=== PATIENT | female | born 1985 | race Caucasian/White ===

== ENCOUNTER → 2017-02-06 | Outpatient (CLI) | payer OTHER ==
[2017-02-06 09:15] LABS: ABSOLUTE BASOPHILS # (AUTO) 0.1 10^3/uL (0.0-0.2); ABSOLUTE EOSINOPHILS # (AUTO) 0.1 10^3/uL (0.0-0.6); ABSOLUTE LYMPHOCYTES (AUTO) 1.5 10^3/uL (0.5-4.7); ABSOLUTE MONOCYTES (AUTO) 0.5 10^3/uL (0.1-1.4); BASOPHILS % (AUTO) 1.1 % (0-2); EOSINOPHILS % (AUTO) 1.5 % (0-6); HEMATOCRIT 39.3 % (36.0-47.0); HEMOGLOBIN 12.6 g/dL (12.0-15.5); HGB HCT DIFFERENCE -1.5; LYMPHOCYTES % (AUTO) 24.8 % (13-45); MEAN CORPUSCULAR HEMOGLOBIN 25.8 pg (27.0-33.4); MEAN CORPUSCULAR HGB CONC 32.1 g/dL (32.0-36.0); MEAN CORPUSCULAR VOLUME 81 fl (80-97); MONOCYTES % (AUTO) 7.4 % (3-13); RED BLOOD COUNT 4.88 10^6/uL (3.72-5.28); RED CELL DISTRIBUTION WIDTH 15.7 % (11.5-14.0); SEGMENTED NEUTROPHILS % (AUTO) 65.2 % (42-78); WHITE BLOOD COUNT 6.1 10^3/uL (4.0-10.5)
[2017-02-06 09:21] LABS: ALANINE AMINOTRANSFERASE 15 U/L (9-52); ALBUMIN 4.3 g/dL (3.5-5.0); ALKALINE PHOSPHATASE 86 U/L (38-126); ANION GAP 13 (5-19); ASPARTATE AMINO TRANSFERASE 18 U/L (14-36); BILIRUBIN,DIRECT 0.3 mg/dL (0.0-0.4); BILIRUBIN,TOTAL 0.5 mg/dL (0.2-1.3); BLOOD UREA NITROGEN 16 mg/dL (7-20); CALCIUM 9.2 mg/dL (8.4-10.2); CARBON DIOXIDE 23 mmol/L (22-30); CHLORIDE 105 mmol/L (98-107); CHOLESTEROL 201.04 mg/dL (0-200); Direct HDL 46 mg/dL (>40); GLUCOSE 87 mg/dL (75-110); POTASSIUM 4.1 mmol/L (3.6-5.0); TOTAL PROTEIN 7.9 g/dL (6.3-8.2); TRIGLYCERIDES 115 mg/dL (<150)
[2017-02-06 09:32] LABS: DIRECT LDL 148 mg/dL (<100)
[2017-02-06 09:52] LABS: THYROID STIMULATING HORMONE 2.86 uIU/mL (0.47-4.68)
[2017-02-07 17:27] LABS: INSULIN 12.2 uIU/mL (2.6-24.9)
[2017-02-07 17:28] LABS: VITAMIN D 25-HYDROXY 27.9 ng/mL (30.0-100.0)
== END ==
LOC: OD 07:21
PROVIDERS: ATTEND Family Medicine
DX: Z98.84 Bariatric surgery status (principal); E88.81 Metabolic syndrome and other insulin resistance; L74.9 Eccrine sweat disorder, unspecified; R23.2 Flushing
CPT/HCPCS: 36415; 80053; 80061; 82306; 82533; 82607; 83036; 83525; 83540; 83550; 84439; 84443; 85025

== ENCOUNTER 2018-05-12 03:52 | Emergency (ER) | payer OTHER ==
[2018-05-12] MEDS ORDERED: NORMAL SALINE 1000 ML 1,000 ML IV ONE ×2 (04:10→04:38)
[2018-05-12] MEDS ORDERED: MORPHINE SULFATE 10 MG/ML INJ IV ONE ×2 (04:10→04:39)
[2018-05-12] MEDS ORDERED: ONDANSETRON HCL INJ/PF 4 MG/2 ML SDV IV ONE ×2 (04:10→04:39)
--- NOTE | 2018-05-12 04:14 | ER Document Report ---
ED General - General Chief Complaint: Abdominal Pain Stated Complaint: ABDOMINAL PAIN Time Seen by Provider: 05/12/18 04:05 TRAVEL OUTSIDE OF THE [place] IN LAST 30 DAYS: No - Related Data Allergies/Adverse Reactions: No Known Allergies Allergy (Verified 09/17/15 08:15) Past Medical History - Social History Smoking Status: Unknown if Ever Smoked Frequency of alcohol use: None Drug Abuse: None Family History: Reviewed & Not Pertinent - Past Medical History Cardiac Medical History: Denies: Hx Coronary Artery Disease, Hx Heart Attack, Hx Hypertension Pulmonary Medical History: Denies: Hx Asthma, Hx Bronchitis, Hx COPD, Hx Pneumonia Neurological Medical History: Denies: Hx Cerebrovascular Accident, Hx Seizures Musculoskeletal Medical History: Denies Hx Arthritis Psychiatric Medical History: Denies: Hx Depression Past Surgical History: Reports: Hx Abdominal Surgery - gastric bypass - Immunizations Hx Diphtheria, Pertussis, Tetanus Vaccination: Yes Physical Exam - Vital signs Vitals: Temp Pulse Resp BP Pulse Ox 97.8 F 71 16 130/88 H 100 05/12/18 03:55 05/12/18 03:55 05/12/18 03:55 05/12/18 03:55 05/12/18 03:55 Course - Vital Signs Vital signs: Temp Pulse Resp BP Pulse Ox 97.8 F 71 16 130/88 H 100 05/12/18 03:55 05/12/18 03:55 05/12/18 03:55 05/12/18 03:55 05/12/18 03:55 Discharge - Discharge Referrals: JOANNA DURAN MD [Primary Care Provider] - Follow up as needed
--- NOTE | 2018-05-12 04:42 | ER Document Report ---
ED General - General Chief Complaint: Abdominal Pain Stated Complaint: ABDOMINAL PAIN Time Seen by Provider: 05/12/18 04:05 Notes: Patient is a pleasant 32-year-old female presents with complaint of upper abdominal pain. Is worse in the epigastric and left upper quadrant. She does have a previous history of pancreatitis. Says it feels somewhat similar. She has history of kidney stones and says this does not feel similar. She has also had some urinary frequency. No dysuria. She initially just felt as if her abdomen was bloated last night after eating. She then started having the pain in the vomiting. No blood or emesis. No blood in her stools. No history of abdominal surgeries. Previous pancreatitis was caused by medications. She still has a gallbladder. No pain over the right upper quadrant. Does not drink alcohol. TRAVEL OUTSIDE OF THE [place] IN LAST 30 DAYS: No - Related Data Allergies/Adverse Reactions: No Known Allergies Allergy (Verified 09/17/15 08:15) Past Medical History - Social History Smoking Status: Never Smoker Frequency of alcohol use: None Drug Abuse: None Family History: Reviewed & Not Pertinent - Past Medical History Cardiac Medical History: Denies: Hx Coronary Artery Disease, Hx Heart Attack, Hx Hypertension Pulmonary Medical History: Denies: Hx Asthma, Hx Bronchitis, Hx COPD, Hx Pneumonia Neurological Medical History: Denies: Hx Cerebrovascular Accident, Hx Seizures Musculoskeletal Medical History: Denies Hx Arthritis Psychiatric Medical History: Denies: Hx Depression Past Surgical History: Reports: Hx Abdominal Surgery - gastric bypass - Immunizations Hx Diphtheria, Pertussis, Tetanus Vaccination: Yes Review of Systems - Review of Systems Notes: My Normal Review Basic REVIEW OF SYSTEMS: CONSTITUTIONAL : Denies fever, chills, or sweats. Denies recent illness. CARDIOVASCULAR: Denies chest pain. RESPIRATORY: Denies cough, cold, or chest congestion. Denies shortness of breath, difficulty breathing, or wheezing. GASTROINTESTINAL: Upper abdominal pain. Some vomiting. GENITOURINARY: Denies difficulty urinating, painful urination, burning, frequency, or blood in urine. FEMALE GENITOURINARY: Denies vaginal bleeding, abnormal or irregular periods. LMP: Few days ago MUSCULOSKELETAL: Denies neck or back pain or joint pain or swelling. SKIN: Denies rash or skin lesions. NEUROLOGICAL: Denies altered mental status or loss of consciousness. Denies headache. Denies weakness or paralysis or loss of use of either side. Denies problems with gait or speech. Denies sensory or motor loss. ALL OTHER SYSTEMS REVIEWED AND NEGATIVE. Physical Exam - Vital signs Vitals: Temp Pulse Resp BP Pulse Ox 97.8 F 71 16 130/88 H 100 05/12/18 03:55 05/12/18 03:55 05/12/18 03:55 05/12/18 03:55 05/12/18 03:55 - Notes Notes: General Appearance: Well nourished, alert, cooperative, no acute distress, mild to moderate obvious discomfort. Vitals: reviewed, See vital signs table. Head: no swelling or tenderness to the head Eyes: PERRL, EOMI, Conjuctiva clear Mouth: No decreasd moistur Lungs: No wheezing, No rales, No rhonci, No accessory muscle use, good air exchange bilaterally. Heart: Normal rate, Regular rythm, No murmur, no rub Abdomen: Normal BS, soft, No rigidity, some pain palpation over the central abdomen, epigastric region, and left side of the abdomen., No guarding, no rebound, no abdominal masses, no organomegaly Extremities: strength 5/5 in all extremities, good pulses in all extremities, no swelling or tenderness in the extremities, no edema. Skin: warm, dry, appropriate color, no rash Neuro: speech clear, oriented x 3, normal affect, responds appropriately to questions. Course - Re-evaluation Re-evalutation: 05/12/18 06:12 Patient's laboratory evaluation is unremarkable. I do not suspect gallbladder as etiology as the patient has absolutely no pain to palpation of her right upper quadrant. Majority of her pain is in the central portion of her abdomen and mostly in the epigastric region. She does have some pain in left upper quadrant. She does not have any significant flank pain. Her pain is not colicky and does not seem consistent with that of a kidney stone. She has had previous kidney stones and says this is not feel like her previous kidney stones. She is afebrile and has normal vital signs. I talked to patient length and informed her of the exact cause of her pain is not clear at this time and therefore will have her return to the ER in 24 hours if she still having any symptoms or recurrence of her pain. I encouraged her return to ER immediately if she has worsening pain, vomiting, or fevers. Patient agrees with plan will be discharged home. Dictation of this chart was performed using voice recognition software; therefore, there may be some unintended grammatical errors. - Vital Signs Vital signs: Temp Pulse Resp BP Pulse Ox 97.8 F 71 16 130/88 H 100 05/12/18 03:55 05/12/18 03:55 05/12/18 03:55 05/12/18 03:55 05/12/18 03:55 - Laboratory Result Diagrams: 05/12/18 05:27 05/12/18 05:27 Laboratory results interpreted by me: 05/12/18 05/12/18 05:27 05:41 WBC 10.7 H Hgb 11.5 L Hct 34.5 L MCV 77 L MCH 25.8 L RDW 17.0 H Seg Neutrophils % 80.6 H Lymphocytes % 11.9 L Absolute Neutrophils 8.6 H Urine Protein 30 H Urine Blood MODERATE H Ur Leukocyte Esterase TRACE H Discharge - Discharge Clinical Impression: Abdominal pain Qualifiers: Abdominal location: unspecified location Qualified Code(s): R10.9 - Unspecified abdominal pain Condition: Good Disposition: HOME, SELF-CARE Additional Instructions: As discussed with you the exact cause of your abdominal pain is unclear at this time. Your workup thus far does not show any concerning findings. Your exam is not consistent with a life-threatening or serious etiology behind your pain. Your workup does not show any evidence of pancreatitis. I do not suspect kidney stone based on your workup and the location of your pain. Despite your workup being negative, we want you to return to the ER in 24 hours for reevaluation if you are still having any pain whatsoever. Please return to ER immediately if you have fevers, intractable vomiting, diarrhea, or if your pain begins to worsen. Prescriptions: Famotidine [Pepcid 40 mg Tablet] 40 mg PO DAILY #20 tablet Ondansetron [Zofran Odt 4 mg Tablet] 1 tab PO Q4H PRN #12 tab.rapdis PRN Reason: For Nausea/Vomiting Forms: Return to Work Referrals: JOANNA DURAN MD [Primary Care Provider] - Follow up tomorrow
[2018-05-12 05:32] LABS: ABSOLUTE BASOPHILS # (AUTO) 0.1 10^3/uL (0.0-0.2); ABSOLUTE LYMPHOCYTES (AUTO) 1.3 10^3/uL (0.5-4.7); ABSOLUTE MONOCYTES (AUTO) 0.7 10^3/uL (0.1-1.4); ABSOLUTE NEUT (AUTO) 8.6 10^3/uL (1.7-8.2); BASOPHILS % (AUTO) 0.6 % (0-2); EOSINOPHILS % (AUTO) 0.4 % (0-6); HEMATOCRIT 34.5 % (36.0-47.0); HEMOGLOBIN 11.5 g/dL (12.0-15.5); LYMPHOCYTES % (AUTO) 11.9 % (13-45); MEAN CORPUSCULAR HEMOGLOBIN 25.8 pg (27.0-33.4); MEAN CORPUSCULAR HGB CONC 33.4 g/dL (32.0-36.0); MEAN CORPUSCULAR VOLUME 77 fl (80-97); MONOCYTES % (AUTO) 6.5 % (3-13); PLATELET COUNT 270 10^3/uL (150-450); RED BLOOD COUNT 4.47 10^6/uL (3.72-5.28); SEGMENTED NEUTROPHILS % (AUTO) 80.6 % (42-78); TOTAL CELLS COUNTED % (AUTO) 100 %; WHITE BLOOD COUNT 10.7 10^3/uL (4.0-10.5)
[2018-05-12 05:47] LABS: ALANINE AMINOTRANSFERASE 14 U/L (9-52); ALKALINE PHOSPHATASE 91 U/L (38-126); ANION GAP 6 (5-19); ASPARTATE AMINO TRANSFERASE 33 U/L (14-36); BILIRUBIN,DIRECT 0.2 mg/dL (0.0-0.4); BILIRUBIN,TOTAL 0.3 mg/dL (0.2-1.3); BLOOD UREA NITROGEN 13 mg/dL (7-20); CALCIUM 8.8 mg/dL (8.4-10.2); CARBON DIOXIDE 27 mmol/L (22-30); CHLORIDE 106 mmol/L (98-107); GLUCOSE 99 mg/dL (75-110); LIPASE 202.6 U/L (23-300); POTASSIUM 4.2 mmol/L (3.6-5.0); SODIUM 138.7 mmol/L (137-145); TOTAL PROTEIN 7.4 g/dL (6.3-8.2)
[2018-05-12 05:58] LABS: APPEARANCE,URINE CLEAR; BILIRUBIN,URINE NEGATIVE (NEGATIVE); COLOR,URINE YELLOW; GLUCOSE, URINE NEGATIVE (NEGATIVE); KETONES,URINE NEGATIVE (NEGATIVE); LEUKOCYTE ESTERASE,URINE TRACE (NEGATIVE); NITRITE,URINE NEGATIVE (NEGATIVE); PROTEIN,URINE 30 mg/dL (NEGATIVE); URINE SPECIFIC GRAVITY 1.024; UROBILINOGEN,URINE NEGATIVE mg/dL (<2.0)
[2018-05-12] MEDS ORDERED: FAMOTIDINE INJ/PF 20 MG/2 ML SDV IV ONE (06:07)
[2018-05-12] MEDS ORDERED: ONDANSETRON ODT 4 MG TAB (6 TAB/ER DISP) PO PRN (06:08)
[2018-05-12] MEDS ORDERED: HYDROCODONE/ACETAMINOPHEN 5-325 MG (6 TAB/ER DISP) PO PRN (06:08)
[2018-05-12 06:24] VITALS: BP 119/69
== END 2018-05-12 06:51 | disposition home or self-care (01) ==
LOC: ER 03:52
DX: R10.10 Upper abdominal pain, unspecified (principal); R10.13 Epigastric pain; Z87.442 Personal history of urinary calculi
CPT/HCPCS: 99284; 96361; 96374; 96375; 36415; 83690; 84703; 85025; 80053; 81001; J2270; J2405; J7030; S0028

== ENCOUNTER → 2018-08-07 | Outpatient (CLI) | payer OTHER | LOC: OD 08:25 | PROVIDERS: ATTEND Otolaryngology | DX: J30.9 Allergic rhinitis, unspecified (principal) | CPT/HCPCS: 36415; 82785; 86003 ==

== ENCOUNTER 2019-08-29 09:45 | Inpatient (IN) | payer OTHER ==
[2019-09-02 11:21] LABS: ABSOLUTE EOSINOPHILS # (AUTO) 0.1 10^3/uL (0.0-0.6); ABSOLUTE LYMPHOCYTES (AUTO) 1.4 10^3/uL (0.5-4.7); ABSOLUTE MONOCYTES (AUTO) 0.7 10^3/uL (0.1-1.4); ABSOLUTE NEUT (AUTO) 9.1 10^3/uL (1.7-8.2); BASOPHILS % (AUTO) 0.3 % (0-2); EOSINOPHILS % (AUTO) 0.7 % (0-6); HEMATOCRIT 34.8 % (36.0-47.0); HEMOGLOBIN 11.4 g/dL (12.0-15.5); LYMPHOCYTES % (AUTO) 12.2 % (13-45); MEAN CORPUSCULAR HEMOGLOBIN 28.9 pg (27.0-33.4); MEAN CORPUSCULAR HGB CONC 32.7 g/dL (32.0-36.0); MEAN CORPUSCULAR VOLUME 88 fl (80-97); MONOCYTES % (AUTO) 6.2 % (3-13); PLATELET COUNT 190 10^3/uL (150-450); RED BLOOD COUNT 3.94 10^6/uL (3.72-5.28); RED CELL DISTRIBUTION WIDTH 17.8 % (11.5-14.0); SEGMENTED NEUTROPHILS % (AUTO) 80.6 % (42-78); TOTAL CELLS COUNTED % (AUTO) 100 %; WHITE BLOOD COUNT 11.2 10^3/uL (4.0-10.5)
[2019-09-02 11:33] LABS: APPEARANCE,URINE CLOUDY; BILIRUBIN,URINE NEGATIVE (NEGATIVE); COLOR,URINE YELLOW; GLUCOSE, URINE >=500 mg/dL (NEGATIVE); KETONES,URINE 20 mg/dL (NEGATIVE); LEUKOCYTE ESTERASE,URINE MODERATE (NEGATIVE); NITRITE,URINE NEGATIVE (NEGATIVE); PROTEIN,URINE 30 mg/dL (NEGATIVE); URINE SPECIFIC GRAVITY 1.027; UROBILINOGEN,URINE NEGATIVE mg/dL (<2.0)
[2019-09-02 12:02] LABS: URINE AMPHETAMINES SCREEN NEGATIVE; URINE BARBITURATES SCREEN NEGATIVE; URINE BENZODIAZEPINES SCREEN NEGATIVE; URINE COCAINE SCREEN NEGATIVE; URINE MARIJUANA (THC) SCREEN NEGATIVE; URINE METHADONE SCREEN NEGATIVE; URINE PHENCYCLIDINE SCREEN NEGATIVE
[2019-09-09] MEDS ORDERED: CEFAZOLIN SODIUM 2 GM in DEXTROSE 5%-WATER 100 ML IV PRN (05:00)
[2019-09-09] MEDS ORDERED: RINGERS SOLUTION,LACTATED 1,000 ML IV PRN (06:14)
[2019-09-09] MEDS ORDERED: RINGERS SOLUTION,LACTATED 1,000 ML IV ONE (06:15)
[2019-09-09 06:36] LABS: APPEARANCE,URINE CLOUDY; BILIRUBIN,URINE NEGATIVE (NEGATIVE); COLOR,URINE AMBER; GLUCOSE, URINE NEGATIVE (NEGATIVE); KETONES,URINE TRACE mg/dL (NEGATIVE); LEUKOCYTE ESTERASE,URINE MODERATE (NEGATIVE); NITRITE,URINE NEGATIVE (NEGATIVE); PROTEIN,URINE 100 mg/dL (NEGATIVE); URINE SPECIFIC GRAVITY 1.027
[2019-09-09 06:43] LABS: URINE AMPHETAMINES SCREEN NEGATIVE; URINE BARBITURATES SCREEN NEGATIVE; URINE BENZODIAZEPINES SCREEN NEGATIVE; URINE COCAINE SCREEN NEGATIVE; URINE MARIJUANA (THC) SCREEN NEGATIVE; URINE METHADONE SCREEN NEGATIVE; URINE PHENCYCLIDINE SCREEN NEGATIVE
[2019-09-09 06:45] LABS: ABSOLUTE BASOPHILS # (AUTO) 0.1 10^3/uL (0.0-0.2); ABSOLUTE EOSINOPHILS # (AUTO) 0.1 10^3/uL (0.0-0.6); ABSOLUTE LYMPHOCYTES (AUTO) 1.6 10^3/uL (0.5-4.7); ABSOLUTE MONOCYTES (AUTO) 0.6 10^3/uL (0.1-1.4); ABSOLUTE NEUT (AUTO) 6.9 10^3/uL (1.7-8.2); BASOPHILS % (AUTO) 1.2 % (0-2); EOSINOPHILS % (AUTO) 1.1 % (0-6); HEMATOCRIT 34.5 % (36.0-47.0); HEMOGLOBIN 11.7 g/dL (12.0-15.5); LYMPHOCYTES % (AUTO) 17.2 % (13-45); MEAN CORPUSCULAR HEMOGLOBIN 29.5 pg (27.0-33.4); MEAN CORPUSCULAR HGB CONC 33.8 g/dL (32.0-36.0); MEAN CORPUSCULAR VOLUME 87 fl (80-97); MONOCYTES % (AUTO) 6.6 % (3-13); PLATELET COUNT 190 10^3/uL (150-450); RED BLOOD COUNT 3.95 10^6/uL (3.72-5.28); RED CELL DISTRIBUTION WIDTH 17.6 % (11.5-14.0); SEGMENTED NEUTROPHILS % (AUTO) 73.9 % (42-78); TOTAL CELLS COUNTED % (AUTO) 100 %; WHITE BLOOD COUNT 9.3 10^3/uL (4.0-10.5)
[2019-09-09] MEDS ORDERED: PHENYLEPHRINE HCL INJ/PF 10 MG/1 ML SDV ONE (07:36)
[2019-09-09] MEDS ORDERED: OXYTOCIN 10 UNIT/ML VIAL ONE (07:36)
[2019-09-09] MEDS ORDERED: EPHEDRINE SULFATE INJ 50 MG/1 ML AMPULE ONE (07:36)
[2019-09-09] MEDS ORDERED: MIDAZOLAM 2 MG/2 ML INJ ONE (07:36)
[2019-09-09] MEDS ORDERED: KETOROLAC TROMETHAMINE INJ/PF 30 MG/1 ML SDV ONE (07:36)
[2019-09-09] MEDS ORDERED: FENTANYL CITRATE INJ/PF 100 MCG/2 ML AMPUL ONE ×2 (07:36→10:20)
[2019-09-09] MEDS ORDERED: OXYTOCIN/NORMAL SALINE 20 UNIT/1,000 ML RTUINJ ONE (07:37)
[2019-09-09] MEDS ORDERED: ONDANSETRON HCL INJ/PF 4 MG/2 ML SDV ONE (07:37)
[2019-09-09] MEDS ORDERED: ACETAMINOPHEN 1,000 MG/100 ML RTUPB IV ONE (07:37)
[2019-09-09] MEDS ORDERED: MEPERIDINE HCL/PF INJ 25 MG/1 ML DISP.SYRIN IV PRN (09:00)
[2019-09-09] MEDS ORDERED: ONDANSETRON HCL INJ/PF 4 MG/2 ML SDV IV PRN (09:00)
[2019-09-09] MEDS ORDERED: DIPHENHYDRAMINE HCL 50 MG/ML VIAL IV PRN (09:00)
[2019-09-09] MEDS ORDERED: FENTANYL CITRATE INJ/PF 100 MCG/2 ML AMPUL IV PRN ×3 (09:00)
[2019-09-09] MEDS ORDERED: PROMETHAZINE HCL INJ 25 MG/1 ML VIAL IV PRN ×3 (09:00→09:31)
[2019-09-09] MEDS ORDERED: OXYTOCIN/NORMAL SALINE 20 UNIT/1,000 ML RTUINJ IV PRN (09:31)
[2019-09-09] MEDS ORDERED: MEASLES,MUMPS&RUBELLA VACC/PF 0.5 ML VIAL SUBCUT PRN (09:31)
[2019-09-09] MEDS ORDERED: SIMETHICONE 80 MG TAB.CHEW PO PRN (09:31)
[2019-09-09] MEDS ORDERED: DIPH/PERTUSS(ACELL)/TETANUS VAC/PF 0.5 ML SYR (>=10YO) IM PRN (09:31)
[2019-09-09] MEDS ORDERED: OXYCODONE-ACETAMINOPHEN 5-325 MG TABLET PO PRN (09:31)
[2019-09-09] MEDS ORDERED: ACETAMINOPHEN 325 MG TABLET PO PRN (09:31)
--- NOTE | 2019-09-09 09:43 | Operative Report ---
Operative Report DATE OF SURGERY: 09/09/19 PREOPERATIVE DIAGNOSIS: Intrauterine at 39.2 wks EGA. Breech present ation. History of gastric bypass. Obesity POSTOPERATIVE DIAGNOSIS: Same as above OPERATION: Primary section SURGEON: EDGAR KHAN ANESTHESIA: Spinal TISSUE REMOVED OR ALTERED: Placenta COMPLICATIONS: None ESTIMATED BLOOD LOSS: 600 INTRAOPERATIVE FINDINGS: Normal appearing uterus, bilateral fallopian tubes and ovaries. VIable male infant with Apagar of 8 and 9 at one and 5 minutes with a weight of 3,600 gms. PROCEDURE: IV fluids: per anesthesia record ' Urinary output: 250 cc Findings: Normal-appearing uterus bilateral fallopian tubes and ovaries. Viable male with Apgars of 8 and 9, at 1 and 5 minutes respectively. Position: To recovery room in stable condition Description of procedure: The patient was taken to the operating room and general anesthesia was administered and found to be adequate. She was then placed on the OR table in the supine position with a slight leftward tilt. Patient was prepped and draped in usual sterile fashion. Ancef 2 gms was given IV prior to the procedure for infection prophylaxis. Timeout was taken. A Pfannenstiel skin incision was then made approximately 3 cm above the pubic symphysis and carried down to level the rectus fascia. The rectus fascia was then nicked in the midline with a scalpel and the fascial incision was extended laterally with use of curved Dubose scissors. The rectus fascia was then grasped with 2 Kocker clamps elevated and the underlying rectus muscle was dissected off both bluntly and sharply. Any bleeding controlled with cautery. The rectus muscles were then split in the midline and the peritoneum was entered. The peritoneal incision was then extended by manually stretching the peritoneum. The bladder blade was positioned. Pick ups and metzenbaum scissors were used to create a bladder flap. The bladder was noted to be out of harm's way. A scalpel was then used in the lower uterine for the hysterotomy, slowly until amniotomy was obtained a large amount of fluid was noted. The uterine incision was then manually stretched. The infant was noted to be in breech postion. The infants hips were delivered and then infant delivered to the level of his scapula. The legs spontaneously delivered and then the was turned allowing the anterior arm to deliver. The rest of the body then delivered easily. The cord was cut clamped and the infant was handed off to the nurse awaiting. was crying prior to hand off. The placenta was manually delivered. Using a lap gauze the uterus was cleared of all clots and debris. The uterus was then exteriorized and a bladder blade was repositioned. The uterine incision was then closed with 0 Chromic suture in a running locked fashion. A second layer of the same suture was used in a running locked imbricated fashion. The uterine incision was inspected and noted to be hemostatic. Retractor was removed. The posterior aspect of the uterus was then inspected and anatomy was seen as above. The uterus was returned to its normal anatomic position within the abdominal cavity. Warm saline irrigation was used to clear all clots and debris from the abdomen. The uterine incision was inspected once more and noted to remain hemostatic. The bladder blade was removed and the peritoneum was closed with 2-0 chromic in a running fashion. The rectus muscles were then reapproximated and the rectus fascia was closed with a #1 PDS in a running fashion. The subcutaneous tissue was then inspected and any bleeding was controlled with Bovie electrocautery. The subcutaneous tissue was then closed with 2-0 Plain Gut suture in a running fashion. The skin was then closed with 3-0 Monocryl in a running subcuticular fashion. The skin incision was then clean dried and Dermabond was applied over the skin incision. All instrument sponge and needle counts were correct x3 for the procedure the patient tolerated the procedure well. She will proceed to recovery room in stable condition
[2019-09-09] MEDS ORDERED: DIPHENHYDRAMINE HCL 50 MG/ML VIAL ONE (09:57)
[2019-09-09] MEDS: HYDROMORPHONE HCL INJ/PF 2 MG/ML AMPULE IV PRN ×2 (11:54→20:07)
[2019-09-09] MEDS ORDERED: GLYCOPYRROLATE 1 MG/5 ML VIAL ONE (12:39)
[2019-09-09] MEDS: OXYCODONE-ACETAMINOPHEN 5-325 MG TABLET PO PRN ×2 (14:28→19:09)
[2019-09-09] MEDS: IBUPROFEN 800 MG TABLET PO SCH (19:08)
[2019-09-09] MEDS: DOCUSATE SODIUM 100 MG CAPSULE PO SCH ×2 (19:08→19:19)
[2019-09-09] MEDS: PRENATAL VITAMIN W DHA CAPSULE PO SCH (19:19)
[2019-09-10] MEDS: IBUPROFEN 800 MG TABLET PO SCH ×5 (00:47→17:09)
[2019-09-10] MEDS: OXYCODONE-ACETAMINOPHEN 5-325 MG TABLET PO PRN ×6 (00:59→21:28)
[2019-09-10 08:11] LABS: HEMOGLOBIN 10.5 g/dL (12.0-15.5); MEAN CORPUSCULAR HEMOGLOBIN 29.8 pg (27.0-33.4); MEAN CORPUSCULAR VOLUME 88 fl (80-97); PLATELET COUNT 159 10^3/uL (150-450); RED BLOOD COUNT 3.53 10^6/uL (3.72-5.28); RED CELL DISTRIBUTION WIDTH 18.2 % (11.5-14.0); WHITE BLOOD COUNT 9.4 10^3/uL (4.0-10.5)
--- NOTE | 2019-09-10 09:46 | PDOC PROGRESS REPORT ---
Subjective-OB Progress Note for:: 09/10/19 Subjective: reports bleeding slowing, pain controlled with current meds. denies needs. + passing gas Physical Exam (OB) Vital Signs: Temp Pulse Resp BP Pulse Ox 98.2 F 70 14 129/84 H 96 09/10/19 07:36 09/10/19 07:36 09/10/19 07:36 09/10/19 07:36 09/10/19 07:36 Intake & Output 09/09/19 09/10/19 09/11/19 06:59 06:59 06:59 Intake Total 500 Output Total 1400 Balance -1400 500 Weight 90.718 kg - Incision: Well Approximated - no s/s infection Closure Type: Surgical Glue - Abdomen Description: Tender, Soft, Round Hernia Present: No Fundal Description: Firm, Midline Fundal Height: u/u - u/2 - Abdominal Distension: No distension - Extremities Lower extremities: Dm's sign - neg Calf: Normal, Nontender Objective-Diagnostic Laboratory: 09/10/19 07:42 09/10/19 07:42 WBC 9.4 RBC 3.53 L Hgb 10.5 L Hct 31.0 L MCV 88 MCH 29.8 MCHC 34.0 RDW 18.2 H Plt Count 159 Assessment and Plan(PN) - Assessment and Plan (1) S/P primary low transverse Is this a current diagnosis for this admission?: Yes (2) Breech presentation at Is this a current diagnosis for this admission?: Yes - Time Spent with Patient Time with patient: Less than 15 minutes Medications reviewed and adjusted accordingly: Yes - Disposition Anticipated Discharge: Home Within: within 48 hours
[2019-09-10] MEDS: PRENATAL VITAMIN W DHA CAPSULE PO SCH (09:47)
[2019-09-10] MEDS: DOCUSATE SODIUM 100 MG CAPSULE PO SCH ×2 (09:47→17:09)
[2019-09-11] MEDS: IBUPROFEN 800 MG TABLET PO SCH ×4 (01:09→18:17)
[2019-09-11] MEDS: OXYCODONE-ACETAMINOPHEN 5-325 MG TABLET PO PRN ×6 (01:36→22:22)
[2019-09-11] MEDS: PRENATAL VITAMIN W DHA CAPSULE PO SCH (09:34)
[2019-09-11] MEDS: DOCUSATE SODIUM 100 MG CAPSULE PO SCH ×2 (09:34→18:18)
--- NOTE | 2019-09-11 11:17 | PDOC PROGRESS REPORT ---
Subjective-OB Progress Note for:: 09/11/19 Subjective: + passing gas, reports bleeding slowing, pain controlled with current meds, denies needs Physical Exam (OB) Vital Signs: Temp Pulse Resp BP Pulse Ox 97.7 F 60 16 122/79 100 09/11/19 07:29 09/11/19 07:29 09/11/19 07:29 09/11/19 07:29 09/11/19 07:29 Intake & Output 09/10/19 09/11/19 09/12/19 06:59 06:59 06:59 Intake Total 3000 Output Total 1400 Balance -1400 3000 - Incision: Well Approximated Closure Type: Surgical Glue - Bilateral Tubal Ligation Dressing Removed: No - Abdomen Description: Tender, Soft, Round Hernia Present: No Fundal Description: Firm, Midline Fundal Height: u/u - u/2 - Abdominal Distension: No distension - Extremities Lower extremities: Dm's sign - neg Calf: Normal, Nontender Objective-Diagnostic Laboratory: 09/10/19 07:42 Assessment and Plan(PN) - Assessment and Plan (1) S/P primary low transverse Is this a current diagnosis for this admission?: Yes (2) Breech presentation at Is this a current diagnosis for this admission?: Yes - Time Spent with Patient Time with patient: Less than 15 minutes Medications reviewed and adjusted accordingly: Yes - Disposition Anticipated Discharge: Home
[2019-09-12] MEDS: IBUPROFEN 800 MG TABLET PO SCH ×3 (00:02→12:46)
[2019-09-12] MEDS: OXYCODONE-ACETAMINOPHEN 5-325 MG TABLET PO PRN ×3 (02:20→12:47)
[2019-09-12] MEDS: DOCUSATE SODIUM 100 MG CAPSULE PO SCH (09:49)
[2019-09-12] MEDS: PRENATAL VITAMIN W DHA CAPSULE PO SCH (09:49)
--- NOTE | 2019-09-12 11:54 | PDOC DISCHARGE SUMMARY ---
Impression - Admit/DC Date/PCP Admission Date/Primary Care Provider: 09/09/19 05:52 EDGAR KHAN MD Discharge Date: 09/12/19 - POD #3, doing well, no complaints. AB+, Rubella Immune . due to breech baby. - Discharge Diagnosis (1) Normal course Is this a current diagnosis for this admission?: Yes (2) Breech presentation at Is this a current diagnosis for this admission?: Yes (3) S/P primary low transverse Is this a current diagnosis for this admission?: Yes - Additional Information Resuscitation Status: Full Code Discharge Diet: Regular Discharge Activity: Activity As Tolerated, No Lifting Over 10 Pounds, No tub bath Referrals: [facility] [Provider Group] Prescriptions: Docusate Sodium [Colace 100 mg Capsule] 100 mg PO BID 30 Days #60 capsule Ibuprofen [Motrin 800 mg Tablet] 800 mg PO Q8H 30 Days #90 tablet Simethicone [Mylicon 80 mg Chewable Tablet] 80 mg PO QIDP PRN 10 Days #40 tab.chew PRN Reason: For Gas (Flatulence) Oxycodone HCl/Acetaminophen [Percocet 5-325 mg Tablet] 2 tab PO Q6HP PRN #28 tablet PRN Reason: For Breakthrough Pain Home Medications: Diphenhydramine HCl [Benadryl Elixir 25 mg/10 ml Ud Cup] 25 mg PO HSP PRN 09/02/19 Iron 18 mg PO DAILY 09/02/19 Prenat 115/Iron Fum/Folic/Dss [ 19 Tablet] 1 each PO DAILY 09/02/19 Docusate Sodium [Colace 100 mg Capsule] 100 mg PO BID 30 Days #60 capsule 09/12/19 Ibuprofen [Motrin 800 mg Tablet] 800 mg PO Q8H 30 Days #90 tablet 09/12/19 Oxycodone HCl/Acetaminophen [Percocet 5-325 mg Tablet] 2 tab PO Q6HP PRN #28 tablet 09/12/19 Vit/Dha [ Multi + Dha Capsule] 1 cap PO DAILY capsule 09/12/19 Simethicone [Mylicon 80 mg Chewable Tablet] 80 mg PO QIDP PRN 10 Days #40 tab.chew 09/12/19 HPI Reason(s) for Admission: Ceasarean Section-Primary Procedures: Ultrasound Intrapartum Procedure(s): : Low Cervical, Transverse Results Laboratory Results: WBC 9.4 10^3/uL (4.0-10.5) 09/10/19 07:42 RBC 3.53 10^6/uL (3.72-5.28) L 09/10/19 07:42 Hgb 10.5 g/dL (12.0-15.5) L 09/10/19 07:42 Hct 31.0 % (36.0-47.0) L 09/10/19 07:42 MCV 88 fl (80-97) 09/10/19 07:42 MCH 29.8 pg (27.0-33.4) 09/10/19 07:42 MCHC 34.0 g/dL (32.0-36.0) 09/10/19 07:42 RDW 18.2 % (11.5-14.0) H 09/10/19 07:42 Plt Count 159 10^3/uL (150-450) 09/10/19 07:42 Lymph % (Auto) 17.2 % (13-45) 09/09/19 06:28 [place] % (Auto) 6.6 % (3-13) 09/09/19 06:28 Eos % (Auto) 1.1 % (0-6) 09/09/19 06:28 Baso % (Auto) 1.2 % (0-2) 09/09/19 06:28 Absolute Neuts (auto) 6.9 10^3/uL (1.7-8.2) 09/09/19 06:28 Absolute Lymphs (auto) 1.6 10^3/uL (0.5-4.7) 09/09/19 06:28 Absolute Monos (auto) 0.6 10^3/uL (0.1-1.4) 09/09/19 06:28 Absolute Eos (auto) 0.1 10^3/uL (0.0-0.6) 09/09/19 06:28 Absolute Basos (auto) 0.1 10^3/uL (0.0-0.2) 09/09/19 06:28 Seg Neutrophils % 73.9 % (42-78) 09/09/19 06:28 Urine Color CECILIA 09/09/19 06:10 Urine Appearance CLOUDY 09/09/19 06:10 Urine pH 5.0 (5.0-9.0) 09/09/19 06:10 Ur Specific [place] 1.027 09/09/19 06:10 Urine Protein 100 mg/dL (NEGATIVE) H 09/09/19 06:10 Urine Glucose (UA) NEGATIVE mg/dL (NEGATIVE) 09/09/19 06:10 Urine Ketones TRACE mg/dL (NEGATIVE) H 09/09/19 06:10 Urine Blood NEGATIVE (NEGATIVE) 09/09/19 06:10 Urine Nitrite NEGATIVE (NEGATIVE) 09/09/19 06:10 Urine Bilirubin NEGATIVE (NEGATIVE) 09/09/19 06:10 Urine Urobilinogen 2.0 mg/dL (<2.0) H 09/09/19 06:10 Ur Leukocyte Esterase MODERATE (NEGATIVE) H 09/09/19 06:10 Urine WBC (Auto) 117 /HPF 09/09/19 06:10 Urine RBC (Auto) 20 /HPF 09/09/19 06:10 U Hyaline Cast (Auto) 6 /LPF 09/09/19 06:10 Urine Bacteria (Auto) 3+ /HPF 09/09/19 06:10 Squamous Epi Cells Auto 17 /HPF 09/09/19 06:10 U Non-Squamous Epis Auto 1 /HPF 09/09/19 06:10 Urine Mucus (Auto) MOD /LPF 09/09/19 06:10 Urine Ascorbic Acid 40 (NEGATIVE) H 09/09/19 06:10 Urine Opiates Screen NEGATIVE 09/09/19 06:10 Urine Methadone Screen NEGATIVE 09/09/19 06:10 Ur Barbiturates Screen NEGATIVE 09/09/19 06:10 Ur Phencyclidine Scrn NEGATIVE 09/09/19 06:10 Ur Amphetamines Screen NEGATIVE 09/09/19 06:10 U Benzodiazepines Scrn NEGATIVE 09/09/19 06:10 Urine Cocaine Screen NEGATIVE 09/09/19 06:10 U Marijuana (THC) Screen NEGATIVE 09/09/19 06:10 Blood Type A POSITIVE 09/09/19 07:23 Antibody Screen NEGATIVE 09/09/19 07:23 Plan Plan of Treatment: D/c to home, f/up in one week for incision check. Time Spent: Less than 30 Minutes
[2019-09-12 12:09] VITALS: BP 133/79
--- NOTE | 2019-09-16 08:22 | PDOC DELIVERY SUMMARY ---
Delivery Summary - Maternal Hx : I Hx # Term Pregnancies: 1 LUCRETIA: 09/14/19 Gestational Age: 39+ 2 Ruptured Membranes: AROM Time of Rupture: 08:49 Fluids: Clear - Delivery Presentation: Breech Heart Rate Monitoring: Done Pre-Operatively Support Person Present: Yes Location: OR : Scheduled, Primary Placenta: Within Normal Limits Delivery of Placenta Date: 09/09/19 Delivery of Placenta Time: 08:52 - Medications Type of Anesthesia:: Spinal - Infant Assess and Care Baby 1 Male Delivery of Date: 09/09/19 Delivery of Infant Time: 08:51 at 1 minute: 8 at 5 minutes: 9 Preprinted Number On Band: [id number] Skin to Skin: Yes Skin to Skin (Mins): 3 To Nursery At: 08:59 Mode of Transport: Bassinet Infant Delivery Weight: 3,600 Infant Delivery Length: 19.25 in - Delivery Personnel Nursery RN: MISTY RICHARDSON MD: EDGAR KHAN
== END 2019-09-12 15:46 | disposition home or self-care (01) | DRG 788 ==
LOC: 2S 09-09 05:52
PROVIDERS: ADMIT Obstetrics & Gynecology; ATTEND Obstetrics & Gynecology
PROC: 10D00Z1 Extraction of Products of Conception, Low, Open Approach (ICD-10-PCS; principal; 2019-09-09 07:45)
DX: O32.1XX0 Maternal care for breech presentation, not applicable or unspecified (principal); Z37.0 Single live birth; Z3A.39 39 weeks gestation of pregnancy; Z98.84 Bariatric surgery status
CPT/HCPCS: 1961; 36415; 59025; 80307; 81001; 85025; 85027; 86850; 86900; 86901; 94799; J0131; J0690; J1170; J1200; J1885; J2250; J2370; J2405; J2590; J3010; J3490; J7060; J7120